=== PATIENT | female | born 2000 ===

== ENCOUNTER 2022-01-08 22:35 | Emergency (ER) | payer SELFPAY ==
[2022-01-09 08:39] VITALS: BP 119/74
[2022-01-09] MEDS ORDERED: KETOROLAC 10 MG TAB PO ONE (08:41)
[2022-01-09] MEDS ORDERED: DEXAMETHASONE 4 MG TAB PO ONE (08:41)
[2022-01-09] MEDS ORDERED: AMOXICILLIN/K CLAV 875/125MG TAB PO ONE (08:47)
--- NOTE | 2022-01-09 08:49 | Emergency Department Report ---
ED ENT HPI - General Chief complaint: Earache Stated complaint: BILATERAL EAR PAIN Time Seen by Provider: 01/09/22 08:41 Source: patient, family Mode of arrival: Ambulatory Limitations: Language Barrier - History of Present Illness Initial comments: 21-year-old female presents to the emergency department for evaluation of worsening right ear pain since . She states that she has had drainage from right ear along with tenderness to touch on right side of face. She states that she has had a fever at home also and pain is bilateral and 10 out of 10. She denies injury or immersion into any water. She states that she did use some [id number]-[id number] eardrops with no improvement. MD complaint: ear pain (Bilateral) -: Gradual, days(s) (2) Location: R ear, L ear Severity: severe Severity scale (0 -10): 10 Quality: aching Consistency: constant Worsens with: other (To) Associated Symptoms: fever, hearing loss, discharge from ear. denies: cough, gum swelling, toothache, pain with swallowing, sore throat, tinnitus, rhinorrhea - Related Data Previous Rx's Medication Instructions Recorded Last Taken Type Amoxicillin/Potassium Clav 1 each PO BID #14 tab 01/09/22 Unknown Rx [Augmentin 875-125 Tablet] Neomy/Polymyx B/Hc (Otic) Soln 4 drops RTEAR TID #1 bottle 01/09/22 Unknown Rx [Cortisporin (Otic) Soln] Allergies Allergy/AdvReac Type Severity Reaction Status Date / Time No Known Allergies Allergy Verified 01/08/22 23:21 ED Dental HPI - General Chief complaint: Earache Stated complaint: BILATERAL EAR PAIN Time Seen by Provider: 01/09/22 08:41 Source: patient, family Mode of arrival: Ambulatory Limitations: Language Barrier - Related Data Previous Rx's Medication Instructions Recorded Last Taken Type Amoxicillin/Potassium Clav 1 each PO BID #14 tab 01/09/22 Unknown Rx [Augmentin 875-125 Tablet] Neomy/Polymyx B/Hc (Otic) Soln 4 drops RTEAR TID #1 bottle 01/09/22 Unknown Rx [Cortisporin (Otic) Soln] Allergies Allergy/AdvReac Type Severity Reaction Status Date / Time No Known Allergies Allergy Verified 01/08/22 23:21 ED Review of Systems ROS: Stated complaint: BILATERAL EAR PAIN Other details as noted in HPI Comment: All other systems reviewed and negative Constitutional: fever. denies: chills Eyes: denies: eye discharge, vision change ENT: ear pain. denies: throat pain, dental pain, congestion Respiratory: denies: cough, shortness of breath, SOB with exertion, SOB at rest, wheezing Cardiovascular: denies: chest pain, palpitations Gastrointestinal: denies: abdominal pain, nausea, vomiting Musculoskeletal: denies: back pain Skin: denies: rash, lesions Neurological: denies: headache, weakness ED Past Medical Hx - Past Medical History Previous Medical History?: No - Surgical History Past Surgical History?: No - Medications Home Medications: Home Medications Medication Instructions Recorded Confirmed Last Taken Type Amoxicillin/Potassium Clav 1 each PO BID #14 tab 01/09/22 Unknown Rx [Augmentin 875-125 Tablet] Neomy/Polymyx B/Hc (Otic) Soln 4 drops RTEAR TID #1 bottle 01/09/22 Unknown Rx [Cortisporin (Otic) Soln] ED Physical Exam - General Limitations: Language Barrier General appearance: alert, in no apparent distress - Head Head exam: Present: atraumatic, normocephalic - Eye Eye exam: Present: normal appearance. Absent: conjunctival injection - Expanded ENT Exam Expanded TM/Canal exam: Erythema: Right TM, Bulging: Right TM, Mastoid Tenderness: Right TM, Canal Discharge: Right TM, Canal Tenderness: Right TM Mouth exam: Present: normal external inspection Teeth exam: Present: normal inspection Throat exam: Positive: normal inspection. Negative: tonsillar erythema - Neck Neck exam: Present: normal inspection, lymphadenopathy - Respiratory Respiratory exam: Present: normal lung sounds bilaterally. Absent: respiratory distress, wheezes, rales, rhonchi, stridor, chest wall tenderness - Cardiovascular Cardiovascular Exam: Present: tachycardia, normal heart sounds - GI/Abdominal GI/Abdominal exam: Present: soft, normal bowel sounds. Absent: distended, tenderness, guarding, rebound, rigid - Extremities Exam Extremities exam: Present: normal inspection - Back Exam Back exam: Present: normal inspection. Absent: CVA tenderness (R), CVA tenderness (L) - Neurological Exam Neurological exam: Present: alert, oriented X3 - Psychiatric Psychiatric exam: Present: normal affect, normal mood - Skin Skin exam: Present: warm, dry, intact, normal color ED Course Vital Signs 01/08/22 01/09/22 01/09/22 23:16 08:38 08:57 Temperature 102.4 F H 100.5 F H Pulse Rate 99 H 88 Respiratory 12 16 Rate Blood Pressure 127/68 119/74 [Right] O2 Sat by Pulse 99 100 Oximetry ED Medical Decision Making - Medical Decision Making 21-year-old female presents to the emergency department for evaluation of worsening right ear pain since . She states that she has had drainage from right ear along with tenderness to touch on right side of face. She states that she has had a fever at home also and pain is bilateral and 10 out of 10. She denies injury or immersion into any water. She states that she did use some [id number]-zfm-[id number] eardrops with no improvement. Exam consistent with both right otitis media and externa. Patient noted to be febrile on admission to the ER. Patient will be treated with a one-time dose of Toradol and Decadron for pain and fever along with Augmentin. She will be discharged home with Augmentin twice a day for the next 7 days along with Cortisporin eardrops to use 3-4 times daily to the right ear for the next 5 days. She is advised to take medications as prescribed and follow-up with primary care provider if no improvement or worsening symptoms. She verbalized understanding of and agreement with plan of care. Critical care attestation.: If time is entered above; I have spent that time in minutes in the direct care of this critically ill patient, excluding procedure time. ED Disposition Clinical Impression: Otitis media Qualifiers: Otitis media type: suppurative Chronicity: acute Laterality: right Recurrence: non-recurrent Spontaneous tympanic membrane rupture: without spontaneous rupture Qualified Code(s): H66.001 - Acute suppurative otitis media without spontaneous rupture of ear drum, right ear Otitis externa Qualifiers: Otitis externa type: unspecified type Chronicity: acute Laterality: right Qualified Code(s): H60.501 - Unspecified acute noninfective otitis externa, right ear Disposition: HOME / SELF CARE / HOMELESS Is pt being admited?: No Does the pt Need Aspirin: No Condition: Stable Instructions: Otitis Externa, [id number], Ear Drops, Adult, [id number], Otitis Media, Adult, [id number] Additional Instructions: Take medications as prescribed. Follow-up with primary care provider if no improvement or worsening symptoms. Prescriptions: Amoxicillin/Potassium Clav [Augmentin 875-125 Tablet] 1 each PO BID #14 tab Neomy/Polymyx B/Hc (Otic) Soln [Cortisporin (Otic) Soln] 4 drops RTEAR TID #1 bottle Referrals: RICHIE LICEA MD [Primary Care Provider] - 3-5 Days Time of Disposition: 08:51
== END 2022-01-09 09:21 | disposition home or self-care (01) ==
LOC: ED 22:35
DX: H66.91 Otitis media, unspecified, right ear (principal); H60.91 Unspecified otitis externa, right ear
CPT/HCPCS: 99283; J8540

== ENCOUNTER 2022-03-26 18:10 | Emergency (ER) | payer SELFPAY ==
[2022-03-26 18:31] VITALS: BP 122/67
[2022-03-26] MEDS ORDERED: IBUPROFEN 800 MG TAB PO ONE (21:46)
[2022-03-26] MEDS ORDERED: AMOXICILLIN/K CLAV 875/125MG TAB PO ONE (21:46)
--- NOTE | 2022-03-26 22:00 | Emergency Department Report ---
ED General Adult HPI - General Chief complaint: Earache Stated complaint: EAR ACHE Time Seen by Provider: 03/26/22 21:46 Source: patient Mode of arrival: Ambulatory Limitations: No Limitations - History of Present Illness Initial comments: Patient a 22-year-old female who presents for left ear pain x2 days. Patient states nocturnal fever and achiness. With lymph to left lateral auricle. There is no sore throat. There is no decrease in hearing. There is no ear drainage. Patient states history of seasonal allergies. Symptoms are exacerbated by m ovement and position. Symptoms are relieved by nothing tried. Severity scale (0 -10): 8 - Related Data Previous Rx's Medication Instructions Recorded Last Taken Type Amoxicillin/Potassium Clav 1 each PO BID #14 tab 01/09/22 Unknown Rx [Augmentin 875-125 Tablet] Neomy/Polymyx B/Hc (Otic) Soln 4 drops RTEAR TID #1 bottle 01/09/22 Unknown Rx [Cortisporin (Otic) Soln] Amoxicillin/K Clav Tab [Augmentin 1 tab PO BID 7 Days #14 tab 03/26/22 Unknown Rx 875 mg] Ibuprofen [Motrin 800 MG tab] 800 mg PO Q8HR PRN #30 tablet 03/26/22 Unknown Rx Allergies Allergy/AdvReac Type Severity Reaction Status Date / Time No Known Allergies Allergy Verified 03/26/22 18:31 ED Review of Systems ROS: Stated complaint: EAR ACHE Other details as noted in HPI Constitutional: denies: chills, fever Eyes: denies: eye pain, eye discharge, vision change ENT: ear pain. denies: throat pain, hearing loss, congestion Respiratory: denies: cough, shortness of breath, wheezing Cardiovascular: denies: chest pain, palpitations Endocrine: no symptoms reported Gastrointestinal: as per HPI Genitourinary: denies: urgency, dysuria, discharge Musculoskeletal: denies: back pain, joint swelling, arthralgia Skin: denies: rash, lesions Neurological: denies: headache, weakness, numbness, paresthesias, confusion, vertigo Psychiatric: denies: anxiety, depression Hematological/Lymphatic: denies: easy bleeding, easy bruising ED Past Medical Hx - Medications Home Medications: Home Medications Medication Instructions Recorded Confirmed Last Taken Type Amoxicillin/Potassium Clav 1 each PO BID #14 tab 01/09/22 Unknown Rx [Augmentin 875-125 Tablet] Neomy/Polymyx B/Hc (Otic) Soln 4 drops RTEAR TID #1 bottle 01/09/22 Unknown Rx [Cortisporin (Otic) Soln] Amoxicillin/K Clav Tab [Augmentin 1 tab PO BID 7 Days #14 tab 03/26/22 Unknown Rx 875 mg] Ibuprofen [Motrin 800 MG tab] 800 mg PO Q8HR PRN #30 tablet 03/26/22 Unknown Rx ED Physical Exam - General Limitations: No Limitations General appearance: alert, in no apparent distress - Head Head exam: Present: normocephalic, normal inspection - Eye Eye exam: Present: PERRL, EOMI. Absent: conjunctival injection, nystagmus Pupils: Present: normal accommodation - ENT ENT exam: Present: normal orophraynx, mucous membranes moist, normal external ear exam - Expanded ENT Exam Expanded TM/Canal exam: Erythema: Left TM, Loss of Landmarks: Left TM, Canal Tenderness: Left TM - Neck Neck exam: Present: normal inspection, full ROM, lymphadenopathy (Left lateral lateral orbital). Absent: tenderness, meningismus, thyromegaly - Respiratory Respiratory exam: Present: normal lung sounds bilaterally. Absent: respiratory distress, wheezes, stridor, chest wall tenderness - Cardiovascular Cardiovascular Exam: Present: regular rate, normal rhythm, normal heart sounds. Absent: systolic murmur, diastolic murmur, rubs, gallop - GI/Abdominal GI/Abdominal exam: Present: soft, normal bowel sounds. Absent: distended, tenderness - Rectal Rectal exam: Present: deferred - Extremities Exam Extremities exam: Present: normal inspection, full ROM, normal capillary refill. Absent: tenderness - Back Exam Back exam: Present: normal inspection, full ROM. Absent: CVA tenderness (R), CVA tenderness (L) - Neurological Exam Neurological exam: Present: alert, CN II-XII intact, normal gait. Absent: oriented X3 - Psychiatric Psychiatric exam: Present: normal affect - Skin Skin exam: Present: warm, dry, intact, normal color. Absent: rash ED Course Vital Signs 03/26/22 18:29 Temperature 98.4 F Pulse Rate 60 Respiratory 16 Rate Blood Pressure 122/67 [Right] O2 Sat by Pulse 100 Oximetry ED Medical Decision Making - Medical Decision Making The straight for AOM, patient DC'd home with prescriptions. Patient will follow-up with their primary care doctor in 2 to 3 days. Patient verbalized agreement understanding with discharge plan. Patient DC'd home in stable condition at this time. Critical care attestation.: If time is entered above; I have spent that time in minutes in the direct care of this critically ill patient, excluding procedure time. ED Disposition Clinical Impression: AOM (acute otitis media) Qualifiers: Otitis media type: serous Laterality: left Recurrence: non-recurrent Qualified Code(s): H65.02 - Acute serous otitis media, left ear Disposition: HOME / SELF CARE / HOMELESS Is pt being admited?: No Does the pt Need Aspirin: No Condition: Stable Instructions: Otitis Media, Adult Additional Instructions: Take medications as prescribed, follow-up with your doctor in 2 to 3 days. Return to emergency department should symptoms worsen. Prescriptions: Amoxicillin/K Clav Tab [Augmentin 875 mg] 1 tab PO BID 7 Days #14 tab Ibuprofen [Motrin 800 MG tab] 800 mg PO Q8HR PRN #30 tablet PRN Reason: pain fever Referrals: YEIMI THORNE MD [Staff Physician] - 3-5 Days Forms: Work/School Release Form(ED) Time of Disposition: 22:02
== END 2022-03-26 22:31 | disposition home or self-care (01) ==
LOC: ED 18:10
DX: H66.92 Otitis media, unspecified, left ear (principal); Z79.899 Other long term (current) drug therapy
CPT/HCPCS: 99282